=== PATIENT | female | born 1990 | race Caucasian/White ===

== ENCOUNTER 2016-12-26 09:29 | Emergency (ER) | payer BC, OTHER ==
[2016-12-26 10:13] VITALS: BP 170/74
--- NOTE | 2016-12-26 10:23 | UC ---
Respiratory Complaint HPI - HPI Summary HPI Summary: sore throat, right ear drainage, cough, body aches - History of Current Complaint Chief Complaint: UCRespiratory Stated Complaint: SORE THROAT Time Seen by Provider: 12/26/16 10:11 Hx Obtained From: Patient Hx Last Menstrual Period: two weeks ago- ?: No Onset/Duration: Sudden Onset, Lasting Weeks - 2, Still Present, Worse Since - past 24 hours Timing: Constant Severity Initially: Moderate Severity Currently: Moderate Pain Intensity: 6 Pain Scale Used: 0-10 Numeric Character: Cough: Nonproductive Aggravating Factors: Nothing Alleviating Factors: Nothing Associated Signs And Symptoms: Positive: Fever, Chills, Wheezing, URI, Nasal Congestion - Allergies/Home Medications Allergies/Adverse Reactions: Allergies Allergy/AdvReac Type Severity Reaction Status Date / Time Codeine Allergy Severe Rash Verified 05/06/14 10:16 Diphenhydramine Allergy Severe Hives Verified 05/06/14 10:16 [From Benadryl] PMH/Surg Hx/FS Hx/Imm Hx Previously Healthy: No Endocrine History Of: Denies: Diabetes, Thyroid Disease Cardiovascular History Of: Denies: Cardiac Disorders, Hypertension Respiratory History Of: Reports: Asthma - exercise Denies: COPD GI/ History Of: Denies: Ulcer - Surgical History Surgical History: None - Family History Known Family History: Positive: None Family History: denies recent illness exposures or cardiovascular issues in family lineage - Social History Occupation: Employed Full-time Lives: With Family Alcohol Use: None Substance Use Type: None Smoking Status (MU): Never Smoked Tobacco Review of Systems Constitutional: Chills, Fatigue Skin: Negative Eyes: Negative ENT: Sore Throat, Ear Ache, Nasal Discharge Respiratory: Cough Cardiovascular: Negative Gastrointestinal: Negative Genitourinary: Negative Motor: Negative Neurovascular: Negative Musculoskeletal: Negative Neurological: Negative Psychological: Negative All Other Systems Reviewed And Are Negative: Yes Physical Exam Triage Information Reviewed: Yes Appearance: No Pain Distress, Ill-Appearing - mild, Obese Vital Signs: Initial Vital Signs Temp 98.2 F 12/26/16 10:06 Pulse 76 12/26/16 10:06 Resp 18 12/26/16 10:06 BP 170/74 12/26/16 10:06 Pulse Ox 99 12/26/16 10:06 Vital Signs Reviewed: Yes Eye Exam: Normal Eyes: Positive: Conjunctiva Clear ENT: Positive: Hearing grossly normal, Pharyngeal erythema, Nasal congestion, Other: - drainage right ear. Negative: Tonsillar swelling, Tonsillar exudate, Trismus, Muffled/hoarse voice Dental Exam: Normal Neck exam: Normal Neck: Positive: Supple, Nontender, No Lymphadenopathy Respiratory Exam: Normal Respiratory: Positive: Chest non-tender, No respiratory distress, No accessory muscle use, Decreased breath sounds, Wheezing Cardiovascular Exam: Normal Cardiovascular: Positive: RRR, No Murmur, Pulses Normal, Brisk Capillary Refill Musculoskeletal Exam: Normal Musculoskeletal: Positive: Strength Intact, ROM Intact, No Edema Neurological Exam: Normal Neurological: Positive: Alert, Muscle Tone Normal Psychological Exam: Normal Skin Exam: Normal UC Diagnostic Evaluation - Laboratory O2 Sat by Pulse Oximetry: 99 Diagnostic Studies Comment: RST(-) Respiratory Course/Dx - Course Course Of Treatment: Zithromax, prednisone, albuterol, ciprodex ear drops, tylenol increase fluids, otc meds for congestion cough, follow with pcp re- check prn - Differential Dx/Diagnosis Differential Diagnosis/HQI/PQRI: Asthma, Bronchitis, Lower Resp Infection, Sinusitis, Tuberculosis Provider Diagnoses: acute exacebation of asthma, Bronchitis, Right otitis externa Discharge - Discharge Plan Condition: Stable Disposition: HOME Prescriptions: Albuterol HFA INHALER* [Ventolin HFA Inhaler*] 2 puff INH Q6H PRN #1 mdi PRN Reason: cough Azithromycin TAB* [Zithromax TAB (Z-LIANA) 250 mg #6 tabs] 250 mg PO DAILY #6 tab Ciproflox/Dexameth OTIC.SUSP* [Ciprodex OTIC.SUSP*] 4 drop .SEE ORDER BID #1 btl predniSONE TAB* [Deltasone TAB*] 50 mg PO DAILY #4 tab Patient Education Materials: Ciprofloxacin/Dexamethasone (Into the ear), Otitis Externa (ED), How to Use a Metered-Dose Inhaler (ED), How to Instill Ear Drops (GEN), Acute Bronchitis (ED) Referrals: [facility] [Outside] - If Needed No Primary Care Phys,NOPCP [Primary Care Provider] -
[2016-12-26] MEDS ORDERED: Albuterol/Ipratropium NEB.SOL* Albuterol 2.5 MG/Ipratropium 0.5 MG 3 ML INH ONE (10:29)
== END 2016-12-26 11:18 | disposition home or self-care (01) ==
LOC: UCEAST 09:29
DX: J45.901 Unspecified asthma with (acute) exacerbation (principal); H60.91 Unspecified otitis externa, right ear; R03.0 Elevated blood-pressure reading, without diagnosis of hypertension; Z22.322 Carrier or suspected carrier of Methicillin resistant Staphylococcus aureus; Z88.5 Allergy status to narcotic agent; E66.9 Obesity, unspecified
CPT/HCPCS: 87070; 87077; 87185; 87205; 87640; 87641; 87651; 99212; A9270-GY; G0463

== ENCOUNTER 2016-12-27 13:43 | Emergency (ER) | payer OTHER ==
[2016-12-27 14:19] VITALS: BP 150/97
--- NOTE | 2016-12-27 15:02 | UC ---
Ear Complaint HPI - HPI Summary HPI Summary: 26 year old female comes in complaining of worsening sore throat, eye irritation and discharge, and fatigue. THROAT: Patient states that her throat has been constantly painful x 3-4 days. The throat was intermittently painful for the week prior to her consistent pain. Throat is painful to swallow, pt states, "my entire throat feels like it' s swollen". Reports on going fever-like symptoms for over a week. Reports fatigue x 3-4 weeks. EYE: Patient reports left eye discharge x 2 days, waking up with the left eye "crusted shut," and increased yellow discharge and irritation. Today, the patients right eye began bothering her, states she has had slightly more discharge from the right eye. - History of Current Complaint Chief Complaint: UCGeneralIllness Stated Complaint: EAR PAIN EYE ISSUE Time Seen by Provider: 12/27/16 14:33 Hx Obtained From: Patient Hx Last Menstrual Period: 12/12/16 Onset/Duration: Gradual Onset Severity Initially: Mild Severity Currently: Severe Pain Intensity: 9 Associated Signs/Symptoms: Positive: Discharge, URI Symptoms. Negative: Hearing Loss - Allergies/Home Medications Allergies/Adverse Reactions: Allergies Allergy/AdvReac Type Severity Reaction Status Date / Time Codeine Allergy Severe Rash Verified 05/06/14 10:16 Diphenhydramine Allergy Severe Hives Verified 05/06/14 10:16 [From Benadryl] PMH/Surg Hx/FS Hx/Imm Hx Previously Healthy: Yes Endocrine History Of: Denies: Diabetes, Thyroid Disease Cardiovascular History Of: Denies: Cardiac Disorders, Hypertension Respiratory History Of: Reports: Asthma - exercise Denies: COPD GI/ History Of: Denies: Ulcer Psychological History Of: Denies: Anxiety, Depression, Bipolar Disorder, Schizophrenia, Post Traumatic Stress Disorder - Surgical History Surgical History: None - Family History Known Family History: Positive: None Family History: denies recent illness exposures or cardiovascular issues in family lineage - Social History 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 Alcohol Use: None Substance Use Type: None Smoking Status (MU): Never Smoked Tobacco Have You Smoked in the Last Year: No Review of Systems Constitutional: Fever, Fatigue Skin: Negative Eyes: Blurred Vision, Drainage, Eye Redness - Left eye ENT: Sore Throat, Ear Ache, Nasal Discharge Respiratory: Cough Cardiovascular: Negative Gastrointestinal: Negative Genitourinary: Negative Motor: Negative Neurovascular: Negative Musculoskeletal: Other: - All over body fatigue Neurological: Negative Psychological: Negative All Other Systems Reviewed And Are Negative: Yes Physical Exam Triage Information Reviewed: Yes Appearance: Well-Appearing, No Pain Distress Vital Signs: Initial Vital Signs Temp 97.9 F 12/27/16 14:17 Pulse 83 12/27/16 14:17 Resp 16 12/27/16 14:17 BP 150/97 12/27/16 14:17 Pulse Ox 99 12/27/16 14:17 Vital Signs Reviewed: Yes Eyes: Positive: Conjunctiva Inflamed, Discharge - Yellow discharge ENT: Positive: Pharyngeal erythema, Nasal congestion, TM bulging - land chapman obscured, dull, with parts of TM being black and red, TM dull, TM red - Right sided TM rupture, Tonsillar swelling, Tonsillar exudate, Trismus - Right ear, Other: Dental Exam: Normal Neck: Positive: Supple, Tenderness @, Enlarged Nodes @ - Anterior cervical lymph nodes, tonsilar, submandibular, submental Respiratory: Positive: Lungs clear, Normal breath sounds, No respiratory distress, No accessory muscle use, Decreased breath sounds - Posterior. Negative: Wheezing Cardiovascular: Positive: RRR, No Murmur, Pulses Normal Abdomen Description: Positive: Nontender, No Organomegaly, Soft, Other: - LUQ tenderness Bowel Sounds: Positive: Present Musculoskeletal Exam: Normal Musculoskeletal: Positive: Strength Intact, ROM Intact, No Edema Neurological: Positive: Alert, Muscle Tone Normal Psychological Exam: Normal Skin Exam: Normal Ear Complaint Course/Dx - Differential Dx/Diagnosis Provider Diagnoses: Bacterial conjunctivitis left eye. tonsillitis, suspect mononucleosis. Bilateral otitis media with ruptured TM right side Discharge - Discharge Plan Condition: Stable Disposition: HOME Prescriptions: Cefdinir 300 mg PO BID #14 cap Erythromycin TOPICAL GEL* [Erythromycin OPTH OINT*] 1 applic BOTH EYES QID #1 oint Patient Education Materials: Otitis Media (ED), Tonsillitis (ED), Conjunctivitis (ED) Referrals: No Primary Care Phys,NOPCP [Primary Care Provider] - [facility] [place] [facility] [Outside] Additional Instructions: As discussed, a primary care provider must be established, follow up with PCP regarding blood pressure concerns, seek immediate medical attention for PE, heart attack, or stroke symptoms as discussed.
[2016-12-27] MEDS ORDERED: Acetaminophen TAB* 325 MG PO ONE (15:38)
[2016-12-27 16:00] LABS: EBV Response YES
[2016-12-27 18:37] LABS: Hematocrit 42 % (35-47); Hemoglobin 13.9 g/dl (12.0-16.0); Mean Corpuscular HGB Conc 33 g/dl (31-36); Mean Corpuscular Hemoglobin 28 pg (27-31); Mean Corpuscular Volume 84 fL (80-97); Mean Platelet Volume 7 um3 (7.4-10.4); Red Cell Distribution Width 13 % (10.5-15); White Blood Count 12.7 10^3/ul (3.5-10.8)
[2016-12-27 18:56] LABS: Mono Internal Control QC Line Present
[2016-12-29 13:54] LABS: EBV Capsid Ag IgG Ab Negative (Negative); EBV Capsid Ag IgM Ab Negative (Negative)
== END 2016-12-27 15:52 | disposition home or self-care (01) ==
LOC: UCEAST 13:43
DX: H10.32 Unspecified acute conjunctivitis, left eye (principal); J03.90 Acute tonsillitis, unspecified; H66.93 Otitis media, unspecified, bilateral; H72.91 Unspecified perforation of tympanic membrane, right ear; Z88.5 Allergy status to narcotic agent; Z91.09 Other allergy status, other than to drugs and biological substances
CPT/HCPCS: 36415; 85025; 86308; 86664; 86665; 99213; A9270-GY; G0463

== ENCOUNTER 2017-01-02 07:20 | Emergency (ER) | payer OTHER ==
[2017-01-02 07:32] VITALS: BP 156/89
--- NOTE | 2017-01-02 07:45 | UC ---
Ear Complaint HPI - HPI Summary HPI Summary: PT HERE 12/26 AND 12/27 AND TX FOR RIGHT SIDED OTITIS EXTERNA/TM RUPTURE WITH CIPRODEX DROPS AND BRONCHITIS/TONSILLITIS WITH CEFDINIR. STATES SHE IS GETTING BETTER OVERALL BUT HAS PERSISTENT PAIN IN LEFT EAR, DECREASED HEARING AND RINGING IN THE EAR. SHE HAS ONE MORE DOSE OF CEFDINIR AND HAS BEEN USING THE CIPRODEX BID PRESCRIBED. - History of Current Complaint Chief Complaint: UCEar Stated Complaint: EAR ISSUE COUGH Time Seen by Provider: 01/02/17 07:31 Hx Obtained From: Patient Hx Last Menstrual Period: 3 weeks Onset/Duration: Gradual Onset, Lasting Days, Still Present Severity Initially: Mild Severity Currently: Mild Pain Intensity: 3 Pain Scale Used: 0-10 Numeric Aggravating Factors: Nothing Alleviating Factors: Nothing Associated Signs/Symptoms: Positive: Hearing Loss, URI Symptoms. Negative: Discharge, Foreign Body Sensation, Trauma to Ear, Swelling @ - Allergies/Home Medications Allergies/Adverse Reactions: Allergies Allergy/AdvReac Type Severity Reaction Status Date / Time Codeine Allergy Severe Rash Verified 05/06/14 10:16 Diphenhydramine Allergy Severe Hives Verified 05/06/14 10:16 [From Benadryl] PMH/Surg Hx/FS Hx/Imm Hx Endocrine History Of: Denies: Diabetes, Thyroid Disease Cardiovascular History Of: Denies: Cardiac Disorders, Hypertension Respiratory History Of: Reports: Asthma - exercise Denies: COPD GI/ History Of: Denies: Ulcer Psychological History Of: Denies: Anxiety, Depression, Bipolar Disorder, Schizophrenia, Post Traumatic Stress Disorder - Surgical History Surgical History: None - Family History Known Family History: Positive: Hypertension Family History: denies recent illness exposures or cardiovascular issues in family lineage - Social History Alcohol Use: None Substance Use Type: None Smoking Status (MU): Never Smoked Tobacco Have You Smoked in the Last Year: No Review of Systems Constitutional: Negative ENT: Sore Throat, Ear Ache Respiratory: Cough Cardiovascular: Negative Gastrointestinal: Negative All Other Systems Reviewed And Are Negative: Yes Physical Exam Triage Information Reviewed: Yes Appearance: Well-Appearing, No Pain Distress, Well-Nourished Vital Signs: Initial Vital Signs Temp 98.2 F 01/02/17 07:26 Pulse 85 01/02/17 07:26 Resp 16 01/02/17 07:26 BP 156/89 01/02/17 07:26 Pulse Ox 98 01/02/17 07:26 Vital Signs Reviewed: Yes Eyes: Positive: Conjunctiva Clear ENT: Positive: Hearing grossly normal, Pharynx normal, Other: - RIGHT TM HEALED , LEFT TM RETRACTED. LEFT EAC INFLAMED AND MACERATED. Neck: Positive: Supple, Nontender, No Lymphadenopathy Respiratory Exam: Normal Cardiovascular Exam: Normal Abdomen Description: Positive: Soft Musculoskeletal: Positive: No Edema Neurological: Positive: Alert Psychological: Positive: Age Appropriate Behavior Skin: Negative: rashes Ear Complaint Course/Dx - Differential Dx/Diagnosis Provider Diagnoses: LEFT OTITIS EXTERNA Discharge - Discharge Plan Condition: Stable Disposition: HOME Prescriptions: Neomyc/Polym/HC 1% OTIC SUSP* [Cortisporin Otic Susp 1%*] 4 drop LEFT EAR TID # 1 btl Patient Education Materials: Otitis Externa (ED) Referrals: Kevin Rubio MD [Medical Doctor] - If Needed Additional Instructions: GIVEN YOUR PERSISTENT EAR PAIN AND TINNITUS DESPITE ORAL ANTIBIOTICS AND ANTIBIOTIC EAR DROPS I WOULD RECOMMEND YOU FOLLOW-UP WITH AN ENT. PLEASE CALL THE NUMBER BELOW FOR AN APPT WITHIN THE NEXT WEEK. E[facility] IN [place] [phone]
== END 2017-01-02 07:56 | disposition home or self-care (01) ==
LOC: UCEAST 07:20
DX: H60.92 Unspecified otitis externa, left ear (principal); Z88.5 Allergy status to narcotic agent
CPT/HCPCS: 99212; G0463

== ENCOUNTER 2017-05-02 21:42 | Emergency (ER) | payer OTHER ==
[2017-05-02] MEDS ORDERED: Tetan/Diph/Pertus SYR(Tdap)* 0.5 ML SYR(BOOSTRIX) use SYR IM ONE (22:16)
[2017-05-02] MEDS ORDERED: Lidocaine 1% INJ* 10 MG/ML 30 ML SDV INJ ONE (22:23)
[2017-05-02] MEDS ORDERED: Lidocaine 1% MPF* 2 ML VIAL INJ ONE (22:26)
[2017-05-02] MEDS ORDERED: Cephalexin CAP* 500 MG PO ONE (22:31)
[2017-05-02 22:36] VITALS: BP 151/89
--- NOTE | 2017-05-02 22:50 | UC ---
Joe Atkinson Alok, scribed for Ok Norris MD on 05/02/17 at 2200 . Laceration HPI - HPI Summary HPI Summary: 26F presents to [facility] with a laceration on the right foot middle toe. Pt is unsure of the mechanism of injury but believes it happened today. Pt does not recall her last tetanus shot. - History Of Current Complaint Chief Complaint: UCLaceration Stated Complaint: TOE LACERATION Hx Obtained From: Patient Laceration Location: Toe Onset/Duration: Lasting Hours, Still Present Severity: Moderate Aggravating Factors: Nothing - Allergies/Home Medications Allergies/Adverse Reactions: Allergies Allergy/AdvReac Type Severity Reaction Status Date / Time Codeine Allergy Severe Rash Verified 05/02/17 21:47 Diphenhydramine Allergy Severe Hives Verified 05/02/17 21:47 [From Benadryl] Home Medications: Home Medications Ibuprofen TAB* [Advil TAB*] 600 mg PO PRN 05/02/17 [History] PMH/Surg Hx/FS Hx/Imm Hx - Surgical History Surgical History: None - Family History Known Family History: Positive: Hypertension Family History: denies recent illness exposures or cardiovascular issues in family lineage - Social History Occupation: Employed Full-time Alcohol Use: None Substance Use Type: None Smoking Status (MU): Never Smoked Tobacco Have You Smoked in the Last Year: No - Immunization History Most Recent Tetanus Shot: UNSURE Review of Systems Constitutional: Negative Skin: Other - laceration right foot middle toe All Other Systems Reviewed And Are Negative: Yes Physical Exam Triage Information Reviewed: Yes Appearance: Well-Appearing, No Pain Distress Vital Signs: Initial Vital Signs Temp 98 F 05/02/17 21:44 Pulse 79 05/02/17 21:44 Resp 20 05/02/17 21:44 BP 151/89 05/02/17 21:44 Vital Signs Reviewed: Yes Eyes: Positive: Other: - EOMI, ROSSANA ENT Exam: Normal Neck: Positive: Supple, Nontender Respiratory: Positive: Lungs clear, Normal breath sounds Cardiovascular: Positive: RRR Abdomen Description: Positive: Nontender, Soft Musculoskeletal Exam: Normal Musculoskeletal: Positive: Strength Intact, ROM Intact Neurological Exam: Normal Neurological: Positive: Other: - A&Ox3, Sensory/Motor intact Psychological: Positive: Other: - affect/mood appropriate Skin: Positive: Other - warm, dry, skin color reflects adequate perfusion. 1cm subcutaneous laceration right foot plantar aspect of the middle toe. Laceration Repair - Laceration Repair 1 Description: Linear Laceration Size After Repair: Length (cm) - 1 CM, Depth (mm) - SC Modified For Repair: No Type Injection: Local Anesthesia Used: 1.0% Lido Irrigation With Pressure Irrigation Device: Yes Closure Material: Sutures Closure Method: Single Layer Suture Of: Skin Suture Type: Prolene - 5-0 PROLENE, #3 SUTURES Laceration Course/Dx - Course/Dx Course Of Treatment: Pt medications reviewed this visit. TDap given. Rx keflex 500mg po tid x 7 days. - Differential Dx - Laceration/Wound Provider Diagnoses: RIGHT 3RD TOE LACERATION Discharge - Discharge Plan Condition: Stable Disposition: HOME Prescriptions: Cephalexin CAP* [Keflex CAP*] 500 mg PO TID #20 cap Patient Education Materials: Care For Your Stitches (ED), Laceration (ED) Referrals: No Primary Care Phys,NOPCP [Primary Care Provider] - Additional Instructions: FOLLOW UP WITH YOUR DOCTOR. SUTURES OUT IN 8-10 DAYS. GET RE CHECKED FOR ANY WORSENING OF YOUR CONDITION; INFECTION, PAIN OR QUESTIONS OR CONCERNS. The documentation as recorded by the Joe burdick Alok accurately reflects the service I personally performed and the decisions made by me, Ok Norris MD.
== END 2017-05-02 22:49 | disposition home or self-care (01) ==
LOC: UCEAST 21:42
DX: S91.114A Laceration without foreign body of right lesser toe(s) without damage to nail, initial encounter (principal); X58.XXXA Exposure to other specified factors, initial encounter; Y93.9 Activity, unspecified; Y92.9 Unspecified place or not applicable; Z23 Encounter for immunization; Z88.5 Allergy status to narcotic agent; Z88.8 Allergy status to other drugs, medicaments and biological substances
CPT/HCPCS: 12001; 90471; 90715; 99212; A9270-GY; G0463; J2001

== ENCOUNTER 2017-05-10 07:01 | Emergency (ER) | payer OTHER ==
[2017-05-10 07:14] VITALS: BP 132/87
--- NOTE | 2017-05-10 07:22 | UC ---
Mirian Atkinson Salem, scribed for Adenike Pickens MD on 05/10/17 at 0719 . Laceration HPI - HPI Summary HPI Summary: Patient is a 26 y/o F presents to the ED for suture removal. She reports laceration to right middle toe of unknown cause with repair (3 sutures) on . Pt received Tetanus shot on 05/02/17. She reports taking prescribed abx, using abx ointment, and covering sutures with gauze since repair. no questions or concerns regarding wound. No fever, chills, pain. Pt states that she is on no medication, but is allergic to Benadryl and Codeine. She denies fever or chills. Pt paints houses for a living. Patients medication reviewed this visit. - History Of Current Complaint Chief Complaint: UCGeneralIllness Stated Complaint: SUTURE REMOVAL Time Seen by Provider: 05/10/17 07:20 Hx Obtained From: Patient Laceration Location: Toe Mechanism Of Injury: Blunt Trauma Onset/Duration: Gradual Onset, Lasting Days, Resolved Severity: Moderate Aggravating Factors: Movement - Allergies/Home Medications Allergies/Adverse Reactions: Allergies Allergy/AdvReac Type Severity Reaction Status Date / Time Codeine Allergy Severe Rash Verified 05/02/17 21:47 Diphenhydramine Allergy Severe Hives Verified 05/02/17 21:47 [From Benadryl] PMH/Surg Hx/FS Hx/Imm Hx Previously Healthy: Yes - Surgical History Surgical History: None - Family History Known Family History: Negative: Hypertension, Diabetes - Social History Alcohol Use: None Substance Use Type: None Smoking Status (MU): Never Smoked Tobacco Have You Smoked in the Last Year: No - Immunization History Most Recent Tetanus Shot: UNSURE Review of Systems Constitutional: Negative Skin: Other - Lac repair to right middle toe. All Other Systems Reviewed And Are Negative: Yes Physical Exam Triage Information Reviewed: Yes Appearance: Well-Appearing, No Pain Distress, Well-Nourished Vital Signs: Initial Vital Signs Temp 98.8 F 05/10/17 07:07 Pulse 100 05/10/17 07:07 Resp 17 05/10/17 07:07 BP 132/87 05/10/17 07:07 Pulse Ox 100 05/10/17 07:07 Vital Signs Reviewed: Yes Musculoskeletal Exam: Normal Musculoskeletal: Positive: Strength Intact, ROM Intact Neurological Exam: Normal Neurological: Positive: Alert Skin: Positive: Other - underside right middle toe - 3 simple interrupted sutures c/d/i. No erythema, no discharge no fluctuance, no warmth Laceration Course/Dx - Course/Dx Course Of Treatment: 3 simple interrupted sutures removed. wound well healed. covered with abx ointment and bandaid. reviewed s/s infection with pt and wound care - Differential Dx - Laceration/Wound Provider Diagnoses: suture removal Discharge - Discharge Plan Condition: Stable Disposition: HOME Patient Education Materials: Stitches Removal (ED) Referrals: Non Staff,Doctor [Primary Care Provider] - Additional Instructions: - Keep area and clean and dry - okay to cover with a thin layer of antibioric ointment and bandage - return for any questions or concerns The documentation as recorded by the Mirian burdick Salem accurately reflects the service I personally performed and the decisions made by Celio weinberg Laura, MD.
== END 2017-05-10 07:24 | disposition home or self-care (01) ==
LOC: UCEAST 07:01
DX: S91.114D Laceration without foreign body of right lesser toe(s) without damage to nail, subsequent encounter (principal); X58.XXXD Exposure to other specified factors, subsequent encounter; Y92.9 Unspecified place or not applicable; Z88.5 Allergy status to narcotic agent

== ENCOUNTER 2017-08-29 09:19 | Emergency (ER) | payer OTHER | END 2017-08-29 09:52 | disposition left against medical advice (07) | LOC: UCEAST 09:19 | DX: Z53.21 Procedure and treatment not carried out due to patient leaving prior to being seen by health care provider (principal) ==